=== PATIENT | male | born 1990 | race Caucasian/White ===

== ENCOUNTER 2017-05-28 01:10 | Emergency (ER) | payer OTHER ==
[~2017-05-28] VITALS: Ht 190.5 cm; Wt 111.1 kg
[~2017-05-28 01:10] MED LIST: ? ANTIDEPRESSANT; AMBIEN 5 MG TABL5 M1 PO; ANAPROX; CIPRO500 M1 PO; CIPROFLOXACIN500 M1 PO; FLOMAX0.4 MG PO; HYDROCODONE-AP1 EAC6 PO; HYDROXYZINE HCL25 M1 PO; IBUPROFEN 800800 M1 PO; LEVSIN-SL0.125 MG SL; LEVSIN0.125 MG PO; LISINOPRIL10 MG PO; LORTAB 5 MG/5001 TA1 PO; MEDROL DOSPAK21 TA1 PO; MIRALAX255 GM PO; NAPROSYN500 MG PO; NOHOMEMEDICATIONS; NORCO 5-325 TA1 EAC1 PO; NORCO 5-325 TA1 EACH PO; PERCOCET 10-321 EACH PO; PERCOCET 5-3251 EACH PO; PERCOCET PO; PHENERGAN 25 MG25 M1 PO; PROMETHAZINE12.5 M1 PO; REGLAN 10 MG TA10 MG PO; TAMSULOSIN HCL0.4 M1 PO; TAMSULOSIN HCL0.4 MG PO; TOPAMAX 25 MG T25 M1 PO; TRAMADOL 50 MG50 MG; TRAMADOL 50 MG50 MG PO; TREXIMET 85-501 EACH PO; TYLENOL WITH CO1 TAB PO; XANAX1 MG PO; ZOFRAN ODT4 MG SUBLING; ZOLPIDEM TARTRA10 MG PO
[2017-05-28] MEDS ORDERED: ULTRAM 50MG TAB50 MG (01:19)
[2017-05-28] MEDS ORDERED: ADDERALL 20 MG20 MG (01:19)
[2017-05-28] MEDS ORDERED: NORCO 5-325 TA1 EACH PO (02:39)
[2017-05-28 02:59] VITALS: BP 149/79
== END 2017-05-28 03:00 | disposition home or self-care (01) ==
LOC: M.ERS 01:10
DX: M25.461 Effusion, right knee (principal); I10 Essential (primary) hypertension; G43.909 Migraine, unspecified, not intractable, without status migrainosus; F17.220 Nicotine dependence, chewing tobacco, uncomplicated; Z87.442 Personal history of urinary calculi